=== PATIENT | male | born 1955 | race Caucasian/White ===

== ENCOUNTER → 2023-10-04 15:50 | Outpatient (CLI) | payer OTHER, SELFPAY ==
--- NOTE | 2023-10-04 | DI.RAD.S_ITS ---
PROCEDURE: XR LUMBAR SPINE 2-3V INDICATIONS: LOW BACK PAIN TECHNIQUE: 3 views of the lumbar spine were acquired. COMPARISON: None. FINDINGS: Bones: 5 [id number] vertebrae are present. There is normal bony alignment. No vertebral body compression fractures. No suspicious bony lesions. Lower lumbar facet arthropathy. Soft tissues: Overlying bowel gas pattern is normal. No suspicious soft tissue calcifications. IMPRESSION: No acute bony abnormality. Lower lumbar facet arthropathy. Comment: Lumbar spine MRI may potentially be helpful. Dictated by: Slick Perdomo M.D. on 10/04/2023 at 16:46 Approved by: Slick Perdomo M.D. on 10/04/2023 at 16:48
== END ==
LOC: RAD 15:53
PROVIDERS: PCP Family Medicine; Referring Provider Family Medicine; Visit Provider Family Medicine
DX: M47.816 Spondylosis without myelopathy or radiculopathy, lumbar region (principal); M54.50 Low back pain, unspecified
CPT/HCPCS: 72100

== ENCOUNTER → 2024-02-14 | Outpatient (CLI) | payer OTHER, SELFPAY ==
--- NOTE | 2024-02-14 17:17 | DI.MRI.S_ITS ---
PROCEDURE: MR LUMBAR SPINE WO CON INDICATIONS: Low back pain TECHNIQUE: Noncontrast sagittal T1 spin echo and T2 fast echo, sagittal STIR, and T2 fast spin echo through the lumbar spine. In cases with scoliosis, additional coronal T2 fast spin echo may be performed. COMPARISON: [facility], CR, XR LUMBAR SPINE 2-3V, 10/04/2023, 16:09. FINDINGS: Image quality: This examination is limited by involuntary motion artifact. Alignment and Curvature: There is minimal retrolisthesis at L1-L2, with mild retrolisthesis at L2-L3. Mild grade 1 anterolisthesis is seen at the L4-L5 level. No associated pars defects are seen. Bone Marrow: Marrow is of normal overall signal. No acute vertebral body compression fractures. Spinal Cord: Conus medullaris terminates at the L1 level. Visualized cord demonstrates normal signal and size. Paraspinous Soft Tissues: No paravertebral masses. T12-L1: Normal appearance. L1-L2: Normal appearance. L2-L3: Mild loss of disc height is seen. Loss of disc signal is seen. Mild disc bulge is seen, with a central disc protrusion. There is at least moderate bilateral neural foraminal narrowing seen. There is a degree of compression seen upon the exiting nerve roots. Mild central canal narrowing is seen. L3-L4: The disc height is well-preserved. Loss of disc signal is seen at this level. Moderate generalized disc bulge is seen. There is a superimposed central disc protrusion. There is moderate right-sided and mild left-sided facet hypertrophy. There is moderate to severe bilateral neural foraminal narrowing, right worse than left. There is a degree of compression seen upon the exiting nerve roots. At least moderate central canal narrowing is seen. L4-L5: The disc height is well-preserved. Loss of disc signal is seen at this level. Mild generalized disc bulge is seen. There is a superimposed central disc protrusion. Prominent facet hypertrophy is seen. There is moderate to severe bilateral neural foraminal narrowing seen. There is a degree of compression seen upon the exiting nerve roots. At least moderate central canal narrowing is seen. L5-S1: At least moderate loss of disc height and disc signal can be seen. Reactive marrow endplate changes are seen, which are hyperintense on T1-weighted and T2-weighted imaging and most consistent with fatty metaplasia (Modic type II changes). Moderate disc bulge is seen, which is eccentric to the right. Mild facet joint hypertrophy is seen. There is moderate to severe right-sided and at least moderate left-sided neural foraminal narrowing. There is a degree of compression seen upon the exiting nerve roots. No significant central canal narrowing is seen. IMPRESSION: Lumbar spine degenerative changes are seen, which are worst inferiorly. Dictated by: Willy Buenrostro M.D. on 02/14/2024 at 18:04 Approved by: Willy Buenrostro M.D. on 02/14/2024 at 18:07
== END ==
PROVIDERS: PCP Family Medicine; Referring Provider Family Medicine; Visit Provider Family Medicine
DX: M47.816 Spondylosis without myelopathy or radiculopathy, lumbar region (principal); M47.817 Spondylosis without myelopathy or radiculopathy, lumbosacral region; M54.50 Low back pain, unspecified; G60.9 Hereditary and idiopathic neuropathy, unspecified
CPT/HCPCS: 72148